=== PATIENT | male | born 1975 | race Caucasian/White ===

== ENCOUNTER 2021-10-04 07:33 | Day surgery (SDC) | payer OTHER ==
[~2021-10-04] VITALS: Ht 167.6 cm; Wt 78.9 kg
[2021-10-04] MEDS ORDERED: fentaNYL citrate 0.05 MG/ML VIAL ONE (08:37)
[2021-10-04] MEDS ORDERED: MIDAZOLAM 5 MG/5 ML VIAL ONE (08:38)
[2021-10-04] MEDS ORDERED: fentaNYL citrate 0.05 MG/ML VIAL IVP ONE (10:00)
== END 2021-10-04 10:05 | disposition home or self-care (01) ==
LOC: MDS 07:33 → MMU 07:34 → MDS 10:05
PROVIDERS: ATTEND Internal Medicine Gastroenterology
DX: Z12.11 Encounter for screening for malignant neoplasm of colon (principal); D12.2 Benign neoplasm of ascending colon; Z90.49 Acquired absence of other specified parts of digestive tract; Z79.899 Other long term (current) drug therapy
CPT/HCPCS: 45385; J3010; J2250